=== PATIENT | female | born 1960 | race Caucasian/White ===

== ENCOUNTER 2016-09-23 19:46 | Emergency (ER) | payer BC, OTHER ==
[~2016-09-23] VITALS: Ht 177.8 cm; Wt 55.0 kg
[~2016-09-23 19:46] MED LIST: ALBU0.086 INH; ALBU17I INH; ALBU1AER INH; NEBUKIT4 XX; PRED20 PO
[2016-09-23 19:47] VITALS: BP 140/85; PULSE 119; RESP 16; TEMP 97.4; O2SAT 96
[2016-09-23] MEDS ORDERED: FLUO20CA4 PO (21:04)
[2016-09-23] MEDS ORDERED: ALBUAER3 INH (21:08)
[2016-09-23] MEDS ORDERED: ALBU0.08 NEB (21:08)
[2016-09-23] MEDS ORDERED: NEBULIZER/ADULT1 KIT (21:09)
[2016-09-23] MEDS ORDERED: NEBULIZER1 MI1 (21:09)
[2016-09-23 21:12] VITALS: BP 132/76; PULSE 101; RESP 18; TEMP 98.8; O2SAT 95
[2016-09-23] MEDS ORDERED: SODIUM CHLOR 0.9% 1000 ML INJ 1,000 ML IV ONE (21:15)
[2016-09-23] MEDS ORDERED: SODIUM CHLORIDE 0.9% FLUSH 10 ML FLUSH IVF PRN (21:15)
[2016-09-23] MEDS ORDERED: RESP: ALBUTEROL 2.5 MG/IPRATROPIUM 0.5 MG NEB (SCH) INH ONE (21:15)
--- NOTE | 2016-09-23 21:15 | PD ---
HPI Chief Complaint: GI Complaint Time Seen by Provider: 21:12 Travel History International Travel<30 days: No Contact w/Intl Traveler<30days: No Traveled to known affect area: No History of Present Illness HPI 56-year-old female presents to the emergency department for evaluation of shortness of breath as well as diarrhea. Patient states that she gets intermittent episodes of shortness of breath. She does report history of COPD and states that she typically does get these with her COPD. She states this occurred last Sunday and again once today. She states that she has a coughing episode with associated shortness of breath. She states that she gets chest pain with the coughing. She denies any chest pain at this time. She states she is not short of breath right now. Patient does use a pro-air and albuterol nebulizer at home. Patient also reports diarrhea for 4 days. She states that after she, she has immediate diarrhea. Less than she was on antibiotics was 2 months ago and she states with ampicillin. The patient states that coworkers have been sick with similar symptoms. She believes she may have had the flu. She's had no documented fevers. She does report bodyaches. She denies any vomiting. No abdominal pain. Patient has not tried any [id number] remedies for her diarrhea. She states she quit smoking approximately 5 years ago. PFSH Past Medical History Arthritis: Yes (in her fingers but not diagnosed) Asthma: Yes Depression: Yes Cancer: No Cardiovascular Problems: No COPD: Yes Endocrine: No Genitourinary: No Neurologic: No Reproductive: No Respiratory: Yes (COPD) Immunizations Current: Yes Menopausal: Yes : 0 Para: 0 Past Surgical History Appendectomy: Yes Tonsillectomy: Yes Other Surgery: Yes (appendix and tosils as a child) Social History Alcohol Use: No (UNKNOWN) Tobacco Use: Yes Substance Use: No Allergies-Medications (Allergen,Severity, Reaction): Coded Allergies: No Known Allergies (Unverified , 09/23/16) Reported Meds & Prescriptions Reported Meds & Active Scripts Active Reported Nebulizer 1 Mis Mis 1 Ea .ROUTE DIRECTED Nebulizer/Adult Mask (N/A) 1 Kit Kit 1 Kit .ROUTE DIRECTED Proair Hfa 8.5 GM Inh (Albuterol Sulfate) 90 Mcg/Act Aer 2 Puff INH Q4-6H PRN 108 mcg/actuation Albuterol Neb (Albuterol Sulfate) 2.5 Mg/3 Ml Neb 2.5 Mg NEB Q4HR NEB While awake Fluoxetine (Fluoxetine HCl) 20 Mg Cap 20 Mg PO DAILY Review of Systems Except as stated in HPI: all other systems reviewed are Neg Physical Exam Narrative GENERAL: Well-nourished, well-developed female patient, ambulatory. Afebrile. SKIN: Focused skin assessment warm/dry. HEAD: Normocephalic. Atraumatic. EYES: No scleral icterus. No injection or drainage. NECK: Supple, trachea midline. No JVD or lymphadenopathy. CARDIOVASCULAR: Regular rhythm without murmurs, gallops, or rubs. Patient is tachycardic with heart rate low 100s. RESPIRATORY: Breath sounds equal bilaterally. No accessory muscle use. Lungs sounds diminished throughout. GASTROINTESTINAL: Abdomen soft, non-tender, nondistended. MUSCULOSKELETAL: No cyanosis, or edema. BACK: Nontender without obvious deformity. No CVA tenderness. Data Data Last Documented VS Vital Signs Date Time Temp Pulse Resp B/P Pulse Ox O2 Delivery O2 Flow Rate FiO2 09/23/16 21:16 Room Air 09/23/16 21:12 98.8 101 18 132/76 95 Orders Complete Blood Count With Diff (09/23/16 21:08) Comprehensive Metabolic Panel (09/23/16 21:08) Ckmb (Isoenzyme) Profile (09/23/16 21:08) Troponin I (09/23/16 21:08) Iv Access Insert/Monitor (09/23/16 21:08) Electrocardiogram (09/23/16 21:08) Ecg Monitoring (09/23/16 21:08) Oximetry (09/23/16 21:08) Oxygen Administration (09/23/16 21:08) Sodium Chloride 0.9% Flush (Ns Flush) (09/23/16 21:15) Albuterol-Ipratropium Neb (Duoneb Neb) (09/23/16 21:15) Sodium Chlor 0.9% 1000 Ml Inj (Ns 1000 M (09/23/16 21:15) C Diff Toxin Pcr (09/23/16 21:08) Chest, Single Ap (09/23/16 ) CKMB (09/23/16 21:20) CKMB% (09/23/16 21:20) Labs Laboratory Tests Test 09/23/16 21:20 White Blood Count 3.0 TH/MM3 Red Blood Count 4.50 MIL/MM3 Hemoglobin 13.7 GM/DL Hematocrit 39.8 % Mean Corpuscular Volume 88.5 FL Mean Corpuscular Hemoglobin 30.5 PG Mean Corpuscular Hemoglobin 34.4 % Concent Red Cell Distribution Width 13.5 % Platelet Count 186 TH/MM3 Mean Platelet Volume 8.4 FL Neutrophils (%) (Auto) 68.1 % Lymphocytes (%) (Auto) 19.4 % Monocytes (%) (Auto) 12.0 % Eosinophils (%) (Auto) 0.0 % Basophils (%) (Auto) 0.5 % Neutrophils # (Auto) 2.1 TH/MM3 Lymphocytes # (Auto) 0.6 TH/MM3 Monocytes # (Auto) 0.4 TH/MM3 Eosinophils # (Auto) 0.0 TH/MM3 Basophils # (Auto) 0.0 TH/MM3 CBC Comment DIFF FINAL Differential Comment Sodium Level 133 MEQ/L Potassium Level 3.4 MEQ/L Chloride Level 96 MEQ/L Carbon Dioxide Level 25.8 MEQ/L Anion Gap 11 MEQ/L Blood Urea Nitrogen 15 MG/DL Creatinine 0.80 MG/DL Estimat Glomerular Filtration 74 ML/MIN Rate Random Glucose 103 MG/DL Calcium Level 8.3 MG/DL Total Bilirubin 0.2 MG/DL Aspartate Amino Transf 31 U/L (AST/SGOT) Alanine Aminotransferase 32 U/L (ALT/SGPT) Alkaline Phosphatase 48 U/L Total Creatine Kinase 309 U/L Creatine Kinase MB 5.5 NG/ML Creatine Kinase MB % 1.8 % Troponin I LESS THAN 0.02 NG/ML Total Protein 6.8 GM/DL Albumin 3.7 GM/DL [facility] Medical Decision Making Medical Screen Exam Complete: Yes Emergency Medical Condition: Yes Medical Record Reviewed: Yes Interpretation(s) Last Impressions Chest X-Ray 09/23/16 0000 Signed Impressions: Service Date/Time: Friday, September 23, 2016 21:48 - CONCLUSION: The lungs are clear. Left posterolateral 7th rib fracture. Feliciano Servin MD Differential Diagnosis Dehydration versus electrolyte abnormality versus COPD exacerbation Narrative Course 36-year-old female presents to the emergency department for evaluation of intermittent shortness of breath. She states she had an episode today with coughing, shortness breath, chest pain. She states the symptoms have resolved. She also reports diarrhea for 4 days. She reports similar symptoms with coworkers. EKG, CBC, CMP, CK, troponin, chest x-ray are ordered and pending. She is given normal saline 1 L IV bolus. Patient is given DuoNeb 1. EKG shows SR, HR 94, no acute ST changes. CBC shows leukopenia of 3.0, monocytes elevated at 12.0. CMP shows no acute abnormality. CK is 309. Troponin is less than 0.02. Chest x-ray shows the lungs are clear. Left posterolateral 7th rib fracture. Patient will be discharged with a prescription for Imodium for diarrhea. She is to follow up with her primary care physician. She is return for any acute worsening of symptoms. Patient verbalizes agreement and understanding. Diagnosis Primary Impression: Gastroenteritis Additional Impression: COPD exacerbation Referrals: Primary Care Physician call for appointment Patient Instructions: Gastroenteritis (ED), General Instructions Additional Instructions: Take Imodium as directed as needed for diarrhea. Drink plenty of fluids. [place] diet and slowly progress diet. Continue albuterol inhaler/nebulizer for sob/wheezing. Follow-up with your primary care physician. Return to the emergency department for any acute worsening of symptoms. Med/Other Pt SpecificInfo: Prescription(s) given Scripts Loperamide (Imodium A-D)2 Mg Cap2 Mg PO Q6H PRN (DIARRHEA) #30 CAP Ref 0 Prov:Shari Stephenson 09/23/16 Disposition: 01 DISCHARGE HOME Condition: Stable Shari Stephenson Sep 23, 2016 21:15
[2016-09-23 21:41] LABS: AUTOMATED NEUTROPHIL # 2.1 TH/MM3 (1.8-7.7); BASOPHIL % 0.5 % (0.0-2.0); HEMATOCRIT 39.8 % (35.0-46.0); HEMO FLAGS DIFF FINAL; LYMPH % 19.4 % (9.0-44.0); LYMPHOCYTE # 0.6 TH/MM3 (1.0-4.8); MEAN CELL VOLUME 88.5 FL (80.0-100.0); MEAN CORPUSCULAR HEMOGLOBIN 30.5 PG (27.0-34.0); MEAN CORPUSCULAR HGB CONC 34.4 % (32.0-36.0); NEUT % 68.1 % (16.0-70.0); PLATELET COUNT 186 TH/MM3 (150-450); RED CELL DISTRIBUTION WIDTH 13.5 % (11.6-17.2)
[2016-09-23 22:13] LABS: ANION GAP 11 MEQ/L (5-15); AST (GOT) 31 U/L (15-37); BICARBONATE 25.8 MEQ/L (21.0-32.0); BLOOD UREA NITROGEN 15 MG/DL (7-18); CHLORIDE 96 MEQ/L (98-107); GLOMERULAR FILTRATION RATE 74 ML/MIN (>89); POTASSIUM 3.4 MEQ/L (3.5-5.1); SODIUM (NA) 133 MEQ/L (136-145)
[2016-09-23 22:18] LABS: ALKALINE PHOSPHATASE 48 U/L (45-117); ALT (GPT) 32 U/L (10-53); CREATINE KINASE 309 U/L (26-192); TOTAL BILIRUBIN ADULT 0.2 MG/DL (0.2-1.0)
[2016-09-23 22:30] LABS: CKMB 5.5 NG/ML (0.5-3.6)
--- NOTE | 2016-09-23 22:35 | RADRPT ---
EXAM DATE/TIME: 09/23/2016 21:48 [facility] COMPARISON: No previous studies available for comparison. INDICATIONS : Short of breath. MEDICAL HISTORY : None. SURGICAL HISTORY : None. ENCOUNTER: Initial ACUITY: 1 day PAIN SCORE: 7/10 LOCATION: Bilateral chest FINDINGS: A single view of the chest demonstrates the lungs to be symmetrically aerated without evidence of mas s, infiltrate or effusion. The cardiomediastinal contours are unremarkable. There is a fracture of the posterior-lateral 7th rib. No evidence pneumothorax. CONCLUSION: The lungs are clear. Left posterolateral 7th rib fracture. Feliciano Servin MD on September 23, 2016 at 22:33 Board Certified Radiologist. This report was verified electronically.
--- NOTE | 2016-09-23 22:45 | PD ---
Data Data Last Documented VS Vital Signs Date Time Temp Pulse Resp B/P Pulse Ox O2 Delivery O2 Flow Rate FiO2 09/23/16 21:16 Room Air 09/23/16 21:12 98.8 101 18 132/76 95 Orders Complete Blood Count With Diff (09/23/16 21:08) Comprehensive Metabolic Panel (09/23/16 21:08) Ckmb (Isoenzyme) Profile (09/23/16 21:08) Troponin I (09/23/16 21:08) Iv Access Insert/Monitor (09/23/16 21:08) Electrocardiogram (09/23/16 21:08) Ecg Monitoring (09/23/16 21:08) Oximetry (09/23/16 21:08) Oxygen Administration (09/23/16 21:08) Sodium Chloride 0.9% Flush (Ns Flush) (09/23/16 21:15) Albuterol-Ipratropium Neb (Duoneb Neb) (09/23/16 21:15) Sodium Chlor 0.9% 1000 Ml Inj (Ns 1000 M (09/23/16 21:15) C Diff Toxin Pcr (09/23/16 21:08) Chest, Single Ap (09/23/16 ) CKMB (09/23/16 21:20) CKMB% (09/23/16 21:20) Labs Laboratory Tests Test 09/23/16 21:20 White Blood Count 3.0 TH/MM3 Red Blood Count 4.50 MIL/MM3 Hemoglobin 13.7 GM/DL Hematocrit 39.8 % Mean Corpuscular Volume 88.5 FL Mean Corpuscular Hemoglobin 30.5 PG Mean Corpuscular Hemoglobin 34.4 % Concent Red Cell Distribution Width 13.5 % Platelet Count 186 TH/MM3 Mean Platelet Volume 8.4 FL Neutrophils (%) (Auto) 68.1 % Lymphocytes (%) (Auto) 19.4 % Monocytes (%) (Auto) 12.0 % Eosinophils (%) (Auto) 0.0 % Basophils (%) (Auto) 0.5 % Neutrophils # (Auto) 2.1 TH/MM3 Lymphocytes # (Auto) 0.6 TH/MM3 Monocytes # (Auto) 0.4 TH/MM3 Eosinophils # (Auto) 0.0 TH/MM3 Basophils # (Auto) 0.0 TH/MM3 CBC Comment DIFF FINAL Differential Comment Sodium Level 133 MEQ/L Potassium Level 3.4 MEQ/L Chloride Level 96 MEQ/L Carbon Dioxide Level 25.8 MEQ/L Anion Gap 11 MEQ/L Blood Urea Nitrogen 15 MG/DL Creatinine 0.80 MG/DL Estimat Glomerular Filtration 74 ML/MIN Rate Random Glucose 103 MG/DL Calcium Level 8.3 MG/DL Total Bilirubin 0.2 MG/DL Aspartate Amino Transf 31 U/L (AST/SGOT) Alanine Aminotransferase 32 U/L (ALT/SGPT) Alkaline Phosphatase 48 U/L Total Creatine Kinase 309 U/L Creatine Kinase MB 5.5 NG/ML Creatine Kinase MB % 1.8 % Troponin I LESS THAN 0.02 NG/ML Total Protein 6.8 GM/DL Albumin 3.7 GM/DL MDM Supervised Visit with DAVON: Yes Narrative Course I, Dr. Poe, have reviewed the advance practice practioner's documentation and am in agreement, met with the patient face to face, made the diagnosis, and the medical decision making was done by me. *My assessment and Findings: 56-year-old female here with complaint of diarrhea. Patient has had multiple sick contacts at work with similar symptoms. She's had 4 days of diarrhea. No hematochezia. No abdominal pain. She notes some body aches. No vomiting. Patient also notes history of slightly increasing cough and chest congestion, shortness of breath. History of COPD. No fevers or chills. No chest pain. On exam patient has regular rate and rhythm, clear to auscultation bilaterally. Abdominal examination is benign. Suspicion for infectious diarrhea, gastroenteritis, electrolyte abnormality, COPD exacerbation and less likely pneumonia. We'll check EKG, chest x-ray laboratory workup for hopeful disposition to home. Krystina Poe MD Sep 23, 2016 22:45
[2016-09-23] MEDS ORDERED: LOPE7.5C PO (22:49)
--- NOTE | 2016-09-24 21:05 | EKG ---
Date Performed: 09/23/2016 Time Performed: 21:40:47 PTAGE: 56 years EKG: Sinus rhythm NONSPECIFIC ST & T-WAVE ABNORMALITY BORDERLINE ECG PREVIOUS TRACING : 12/02/2011 18.59 DOCTOR: Paulino Blackwell Interpretating Date/Time 09/24/2016 21:03:39
== END 2016-09-23 23:28 | disposition home or self-care (01) ==
LOC: NEPE 19:46
DX: K52.9 Noninfective gastroenteritis and colitis, unspecified (principal); J44.1 Chronic obstructive pulmonary disease with (acute) exacerbation; M79.1 Myalgia; R94.31 Abnormal electrocardiogram [ECG] [EKG]; Z72.0 Tobacco use; Z87.39 Personal history of other diseases of the musculoskeletal system and connective tissue; Z87.09 Personal history of other diseases of the respiratory system; Z86.59 Personal history of other mental and behavioral disorders
CPT/HCPCS: 71010; 80053; 82550; 82552; 84484; 85025; 93005; 94664; 96360; 99284; J7030

== ENCOUNTER 2016-09-24 19:23 | Emergency (ER) | payer OTHER ==
[~2016-09-24] VITALS: Ht 177.8 cm; Wt 54.5 kg
[~2016-09-24 19:23] MED LIST changes: +ALBU0.08 NEB; -ALBU0.086 INH; -ALBU17I INH; -ALBU1AER INH; +ALBUAER3 INH; +FLUO20CA4 PO; +LOPE7.5C PO; -NEBUKIT4 XX; +NEBULIZER/ADULT1 KIT; +NEBULIZER1 MI1; -PRED20 PO
[2016-09-24 19:26] VITALS: BP 159/72; PULSE 100; RESP 20; TEMP 97.7; O2SAT 95
[2016-09-25 00:20] VITALS: BP 131/74; PULSE 96; RESP 20; TEMP 98.2; O2SAT 95
[2016-09-25] MEDS ORDERED: RESP: ALBUTEROL 2.5 MG/IPRATROPIUM 0.5 MG NEB (SCH) INH ONE (00:30)
[2016-09-25] MEDS ORDERED: PRED50 PO (00:30)
[2016-09-25] MEDS ORDERED: methylPREDNISolone SOD SUCC 125 MG/2 ML VIAL IM ONE (00:30)
[2016-09-25] MEDS ORDERED: MUCI30TA2 PO (00:30)
--- NOTE | 2016-09-25 00:30 | PD ---
HPI Chief Complaint: Respiratory Distress Time Seen by Provider: 00:21 Travel History International Travel<30 days: No Contact w/Intl Traveler<30days: No Traveled to known affect area: No History of Present Illness HPI Female here with complaint of shortness of breath. History of COPD. Seen here yesterday for COPD exacerbation and diarrhea. Patient discharged to home and states that her breathing treatments have not really been helping much. Patient was not discharged home with steroids. She states that her cough is still present, still having some wheezing. She improves slightly with breathing treatments but her symptoms recur. No fevers or chills. Cough without sputum production. PFSH Past Medical History Arthritis: Yes (in her fingers but not diagnosed) Asthma: Yes Depression: Yes Cancer: No Cardiovascular Problems: No COPD: Yes Endocrine: No Genitourinary: No Neurologic: No Reproductive: No Respiratory: Yes Immunizations Current: Yes Menopausal: Yes : 0 Para: 0 Past Surgical History Appendectomy: Yes Tonsillectomy: Yes Other Surgery: Yes (appendix and tosils as a child) Social History Alcohol Use: No (UNKNOWN) Tobacco Use: Yes Substance Use: No Allergies-Medications (Allergen,Severity, Reaction): Coded Allergies: No Known Allergies (Unverified , 09/24/16) Reported Meds & Prescriptions Reported Meds & Active Scripts Active Imodium A-D (Loperamide HCl) 2 Mg Cap 2 Mg PO Q6H PRN Reported Nebulizer 1 Mis Mis 1 Ea .ROUTE DIRECTED Nebulizer/Adult Mask (N/A) 1 Kit Kit 1 Kit .ROUTE DIRECTED Proair Hfa 8.5 GM Inh (Albuterol Sulfate) 90 Mcg/Act Aer 2 Puff INH Q4-6H PRN 108 mcg/actuation Albuterol Neb (Albuterol Sulfate) 2.5 Mg/3 Ml Neb 2.5 Mg NEB Q4HR NEB While awake Fluoxetine (Fluoxetine HCl) 20 Mg Cap 20 Mg PO DAILY Review of Systems Except as stated in HPI: all other systems reviewed are Neg Physical Exam Narrative GENERAL: Well-appearing female in no acute distress SKIN: Focused skin assessment warm/dry. HEAD: Normocephalic. EYES: No scleral icterus. No injection or drainage. ENT: Mucous membranes pink and moist. NECK: Supple CARDIOVASCULAR: Regular rate and rhythm. No murmur appreciated. RESPIRATORY: No accessory muscle use. Clear to auscultation. Breath sounds equal bilaterally. GASTROINTESTINAL: Abdomen soft, non-tender, nondistended. Hepatic and splenic margins not palpable. MUSCULOSKELETAL: Normal gait NEUROLOGICAL: Awake and alert. Normal speech. PSYCHIATRIC: Appropriate mood and affect; insight and judgment normal. Data Data Last Documented VS Vital Signs Date Time Temp Pulse Resp B/P Pulse Ox O2 Delivery O2 Flow Rate FiO2 09/25/16 00:20 98.2 96 20 131/74 95 Room Air Orders Methylprednisolone So Succ Inj (Solumedr (09/25/16 00:30) Duoneb X 1 As A Single Dose (09/25/16 00:30) MDM Medical Decision Making Medical Screen Exam Complete: Yes Emergency Medical Condition: Yes Medical Record Reviewed: Yes Differential Diagnosis 56-year-old female here with complaint of dyspnea, history of COPD. Differential includes COPD exacerbation, viral syndrome, pneumonia, influenza. Narrative Course Patient given 125 mg Solu-Medrol and DuoNeb 1 will be discharged home with steroids and Mucinex. Diagnosis Primary Impression: COPD exacerbation Referrals: Primary Care Physician as needed Additional Instructions: steroids as prescribed. Mucinex as prescribed. Breathing treatments as needed. Return to the ER for the warning signs discussed and follow-up with primary care provider symptoms persist. Med/Other Pt SpecificInfo: Prescription(s) given Disposition: DISCHARGE HOME Condition: Stable Krystina Poe MD Sep 25, 2016 00:30
[2016-09-25 00:54] VITALS: BP 131/65
== END 2016-09-25 01:14 | disposition home or self-care (01) ==
LOC: NEPE 19:23
DX: J44.1 Chronic obstructive pulmonary disease with (acute) exacerbation (principal); Z72.0 Tobacco use
CPT/HCPCS: 94664; 96372; 99283; J2930